=== PATIENT | male | born 1960 | race African-American/Black ===

== ENCOUNTER 2024-10-12 22:09 | Inpatient (IN) | payer OTHER ==
[2024-10-12 22:43] VITALS: BMI 27.1
[2024-10-13] MEDS ORDERED: METHOCARBAMOL 500 MG TABLET PO PRN (00:12)
[2024-10-13] MEDS ORDERED: BISMUTH SUBSALICYLATE 524 MG/30 ML PO PRN (00:12)
[2024-10-13] MEDS ORDERED: guaiFENesin 600 MG TABLET.ER (FP) PO PRN (00:12)
[2024-10-13] MEDS ORDERED: DICYCLOMINE HCL 10 MG CAPSULE PO PRN (00:12)
[2024-10-13] MEDS ORDERED: BENZOCAINE/MENTHOL (CHLORASEPTIC ) LOZENGE MM PRN (00:12)
[2024-10-13] MEDS ORDERED: ONDANSETRON *ODT* 4 MG TABLET SL PRN (00:12)
[2024-10-13] MEDS ORDERED: NALOXONE (NARCAN) HCL 4 MG/0.1 ML SPRAY NS PRN (00:12)
[2024-10-13] MEDS ORDERED: BENZONATATE 200 MG CAPSULE PO PRN (00:12)
[2024-10-13] MEDS ORDERED: IBUPROFEN 400 MG TABLET (FP) PO PRN (00:12)
[2024-10-13] MEDS ORDERED: ACETAMINOPHEN 325 MG TABLET (FP) PO PRN (00:12)
[2024-10-13] MEDS ORDERED: LOPERAMIDE HCL 2 MG CAPSULE PO PRN (00:12)
[2024-10-13] MEDS ORDERED: MAG HYDROX/AL HYDROX/SIMETH 30 ML UNIT-DOSE CUP PO PRN (00:12)
[2024-10-13] MEDS: PRENATAL VITAMINS W/ FOLIC ACID TABLET (FP) PO SCH (09:54)
[2024-10-13] MEDS: LORazepam 2 MG TABLET PO SCH (10:39)
[2024-10-13] MEDS: THIAMINE 100 MG TABLET PO SCH (22:45)
[2024-10-13] MEDS: IBUPROFEN 600 MG TABLET (FP) PO PRN (22:45)
[2024-10-13] MEDS: MAGNESIUM HYDROX 2400MG/30ML ORAL SUSPENSION 30 ML CUP PO PRN (22:46)
[2024-10-13] MEDS: MELATONIN 5 MG TABLETS PO SCH (22:46)
[2024-10-14 12:12] LABS: POTASSIUM 3.7 mmol/L (3.5-5.1)
[2024-10-14 12:13] LABS: HEMATOCRIT 40.3 % (40.1-51.0); HEMOGLOBIN 12.4 g/dL (13.7-17.5); MCHC 30.8 g/dl (32.3-36.5); MEAN CELL VOLUME 99.8 fl (79.0-92.2); PLATELET COUNT 269 x10^3/uL (163-337)
[2024-10-14 12:18] LABS: ALBUMIN 3.2 g/dl (3.4-5.0); BLOOD UREA NITROGEN 16.2 mg/dL (7-18); CALCIUM 8.7 mg/dL (8.5-10.1)
[2024-10-14 12:22] LABS: BILIRUBIN,TOTAL 0.7 mg/dL (0.2-1); CREATININE 0.7 mg/dL (0.55-1.3); TOT PROT 6.3 g/dl (6.4-8.2)
[2024-10-14] MEDS: LORazepam 1 MG TABLET PO PRN (17:40)
[2024-10-14] MEDS: POLYETHYLENE GLYCOL (HEALTHYLAX) 3350 17 GM PACKET PO PRN (17:42)
[2024-10-15] MEDS: LORazepam 1 MG TABLET PO SCH (05:53)
[2024-10-15] MEDS: amLODIPine BESYLATE 5 MG TABLET (FP) PO SCH (10:58)
[2024-10-16] MEDS ORDERED: LORazepam 0.5 MG TABLET PO PRN
[2024-10-16] MEDS: LORazepam 0.5 MG TABLET PO SCH (06:00)
[2024-10-16] MEDS: DOCUSATE SODIUM 100 MG CAPSULE (FP) PO SCH (10:45)
[2024-10-17] MEDS: LORazepam 0.5 MG TABLET PO ONE (06:00)
[2024-10-17 14:14] VITALS: BP 143/83; PULSE 73; RESP 16; TEMP 97.9
== END 2024-10-17 13:57 | disposition other institution (70) | DRG 897 ==
LOC: YASAS 22:09 → Y6N 10-13 01:20
PROVIDERS: ADMIT Allergy & Immunology; ATTEND Allergy & Immunology
PROC: HZ2ZZZZ Detoxification Services for Substance Abuse Treatment (ICD-10-PCS; principal; 2024-10-13)
DX: F10.230 Alcohol dependence with withdrawal, uncomplicated (principal); Z59.00 Homelessness unspecified; I10 Essential (primary) hypertension; E78.5 Hyperlipidemia, unspecified; E11.9 Type 2 diabetes mellitus without complications; Z79.84 Long term (current) use of oral hypoglycemic drugs; Z87.891 Personal history of nicotine dependence; Z56.0 Unemployment, unspecified
CPT/HCPCS: 36415; 71045-TC-FY; 80053; 80305; 80307; 82962; 85027; 86780; 93005; 93010

== ENCOUNTER 2025-02-24 11:41 | Inpatient (IN) | payer OTHER ==
[2025-02-24 13:33] VITALS: BMI 28.2
[2025-02-24] MEDS ORDERED: BENZOCAINE/MENTHOL (CHLORASEPTIC ) LOZENGE MM PRN (14:11)
[2025-02-24] MEDS ORDERED: LOPERAMIDE HCL 2 MG CAPSULE PO PRN (14:11)
[2025-02-24] MEDS ORDERED: MAGNESIUM HYDROX 2400MG/30ML ORAL SUSPENSION 30 ML CUP PO PRN (14:11)
[2025-02-24] MEDS ORDERED: IBUPROFEN 400 MG TABLET (FP) PO PRN (14:11)
[2025-02-24] MEDS ORDERED: BENZONATATE 200 MG CAPSULE PO PRN (14:11)
[2025-02-24] MEDS ORDERED: NALOXONE (NARCAN) HCL 4 MG/0.1 ML SPRAY NS PRN (14:11)
[2025-02-24] MEDS ORDERED: POLYETHYLENE GLYCOL (HEALTHYLAX) 3350 17 GM PACKET PO PRN (14:11)
[2025-02-24] MEDS ORDERED: MAG HYDROX/AL HYDROX/SIMETH 30 ML UNIT-DOSE CUP PO PRN (14:11)
[2025-02-24] MEDS ORDERED: NICOTINE POLACRILEX 2 MG GUM BUC PRN (14:11)
[2025-02-24] MEDS ORDERED: guaiFENesin 600 MG TABLET.ER (FP) PO PRN (14:11)
[2025-02-24] MEDS ORDERED: NICOTINE POLACRILEX 2 MG LOZENGE BC PRN (14:11)
[2025-02-24] MEDS: MAGNESIUM OXIDE 400 MG TABLET (FP) PO SCH (21:40)
[2025-02-24] MEDS: THIAMINE 100 MG TABLET PO SCH (21:40)
[2025-02-24] MEDS: MELATONIN 5 MG TABLETS PO SCH (21:40)
[2025-02-25] MEDS: PRENATAL VITAMINS W/ FOLIC ACID TABLET (FP) PO SCH (10:03)
[2025-02-25] MEDS: IBUPROFEN 600 MG TABLET (FP) PO PRN (10:04)
[2025-02-25 10:59] LABS: MCHC 30.5 g/dl (32.3-36.5); MEAN CELL VOLUME 102.4 fl (79.0-92.2); MEAN PLT VOLUME 10.9 fl (9.4-12.4); RDW 13.4 % (12.2-16.4)
[2025-02-25 11:02] LABS: GLUCOSE,RANDOM 156.0 mg/dL (74-106); TOT PROT 7.5 g/dl (6.4-8.2)
[2025-02-25 11:04] LABS: ALK PHOS 102.0 U/L (40-150)
[2025-02-25 11:08] LABS: CREATININE 1.24 mg/dL (0.55-1.3); SGOT/AST 74.0 U/L (5-34); SGPT/ALT 63.0 U/L (0-55)
[2025-02-25 11:22] LABS: CO2 23.0 mmol/L (21-32)
[2025-02-25 12:34] LABS: URINE APPEARANCE CLEAR; URINE BILIRUBIN NEGATIVE (NEGATIVE); URINE COLOR YELLOW; URINE GLUCOSE (UA) NEGATIVE (NEGATIVE); URINE KETONE NEGATIVE (NEGATIVE); URINE LEUK ESTERASE NEGATIVE (NEGATIVE); URINE NITRITE NEGATIVE (NEGATIVE); URINE PROTEIN NEGATIVE (NEGATIVE); URINE UROBILINOGEN 0.2 mg/dL (0.2-1.0)
[2025-03-01] MEDS: ACETAMINOPHEN 325 MG TABLET (FP) PO PRN (21:24)
[2025-03-05] MEDS: amLODIPine BESYLATE 5 MG TABLET (FP) PO SCH (13:33)
[2025-03-09 06:46] VITALS: BP 123/83; PULSE 100; RESP 16; TEMP 96.9
== END 2025-03-09 10:00 | disposition home or self-care (01) | DRG 895 ==
LOC: YASAS 11:41 → Y3NR 14:42 → Y5N 02-25 11:46
PROVIDERS: ADMIT Psychiatry & Neurology Pain Medicine; ATTEND Psychiatry & Neurology Pain Medicine
PROC: HZ42ZZZ Group Counseling for Substance Abuse Treatment, Cognitive-Behavioral (ICD-10-PCS; principal; 2025-02-24)
DX: F10.20 Alcohol dependence, uncomplicated (principal); F14.20 Cocaine dependence, uncomplicated; I10 Essential (primary) hypertension; E78.5 Hyperlipidemia, unspecified; E11.9 Type 2 diabetes mellitus without complications; R76.11 Nonspecific reaction to tuberculin skin test without active tuberculosis; R26.89 Other abnormalities of gait and mobility; Z99.89 Dependence on other enabling machines and devices; Z87.891 Personal history of nicotine dependence
CPT/HCPCS: 36415; 80053; 80307; 81003; 82962; 85027; 86780